=== PATIENT | female | born 1970 | race Caucasian/White ===

== ENCOUNTER 2020-11-27 20:34 | Inpatient (IN) | payer OTHER, SELFPAY ==
[2020-11-27] MEDS: Milk of Magnesia 30 ML ORAL.SUSP PO (21:29)
[2020-11-27 21:46] VITALS: BP 137/88; PULSE 80; TEMP 36.9
[2020-11-27 22:11] LABS: Appearance Urine CLEAR; Color Urine YELLOW; Glucose Urine UA NEG (NEG); Leukocyte Esterase Urine NEG (NEG); Nitrite Urine NEG (NEG); PH 6.5 (5.0-8.0); Urine Blood NEG (NEG); Urine Ketones NEG (NEG); Urine Protein NEG (NEG-TRACE)
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
[2020-11-28 06:00] VITALS: BP 119/68; PULSE 52; RESP 16; TEMP 36.4; O2SAT 98
--- NOTE | 2020-11-28 07:12 | PC.NURSE ---
Patient reports to be a smoker on Admission Assessment; refusing Nicotine Replacement Therapy. Refusing both patches and gum, stating they make her sick to her stomach.
[2020-11-28 08:08] LABS: MANUAL DIFF FLAG NO
[2020-11-28 08:11] LABS: Basophils Absolute Auto 0.1 X10*3/uL (0.0-0.2); Eosinophils Absolute Auto 0.4 X10*3/uL (0.0-0.4); Eosinophils Percent Auto 6.3 % (0-4); Hematocrit 42.4 % (37-47); Hemoglobin 13.5 g/dl (12.0-16.0); Imm Gran Abs Auto 0.01 X10*3/uL (0.00-0.03); Imm Gran Pct Auto 0.2 % (0.0-0.4); Lymphocytes Absolute Auto 2.2 X10*3/uL (1.2-4.9); Lymphocytes Percent Auto 39.2 % (20-40); Mean Corpuscular HGB Conc 31.8 g/dl (31.0-35.0); Mean Corpuscular Hemoglobin 31.1 pg (27.0-33.0); Mean Corpuscular Volume 97.7 fL (80-98); Mean Platelet Volume 9.7 fL (9.4-12.3); Monocytes Absolute Auto 0.5 X10*3/uL (0.1-1.2); Monocytes Percent Auto 8.6 % (2-11); Neutrophils Absolute Auto 2.6 X10*3/uL (2.0-8.3); Neutrophils Percent Auto 44.7 % (45-73); Platelet Count 213 X10*3/uL (160-400); Red Blood Count 4.34 X10*6/uL (4.20-5.50); Red Cell Distribution Width 14.5 % (11.0-16.0); White Blood Count 5.7 X10*3/uL (4.8-10.8)
[2020-11-28 08:31] LABS: Alanine Aminotransferase 30 U/L (0-31); Albumin Level 4.2 g/dL (3.5-5.0); Alkaline Phosphatase 81 U/L (39-117); Anion Gap 11 (12-20); Aspartate Amino Transferase 20 U/L (5-31); Bilirubin Total 0.9 mg/dL (0.0-1.0); Blood Urea Nitrogen 19 mg/dL (9-16); Carbon Dioxide 31 mmol/L (22-29); Chloride 108 mmol/L (96-108); Estimated Glomerular Filt Rate > 60; Glucose Random 93 mg/dL (60-115); Potassium 5.3 mmol/L (3.3-5.1); Sodium 145 mmol/L (135-145); Total Protein 6.6 g/dL (6.5-8.0)
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
[2020-11-28 11:05] LABS: Potassium 5.3 mmol/L (3.3-5.1)
[2020-11-28] MEDS: Magnesium Hydrox/Alum Hydrox 30 ML ORAL.SUSP PO (12:23)
--- NOTE | 2020-11-28 12:29 | PC.NURSE ---
PT RECEIVED A CALL BACK FROM [facility] COMMUNITY DIRECTOR 11/28/20
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
--- NOTE | 2020-11-28 15:40 | MHC.CLN ---
Addendum entered by Sandrita Gonzalez, REBECCA 11/28/20 15:48: HEIGHT=5'3 . WEIGHT=48.8 KG. BMI=19.1. Original Note: NUTRITION CONSULT CONSULT FOR WEIGHT LOSS AND DECREASED APPETITE. DECREASED APPETITE PARTLY ATTRIBUTED TO STRESS. REPORTS THAT USUALLY WEIGHTS ABOUT 105#. CURRENT XSHFBD=041.4# (WEIGHED SELF TODAY AT VISIT). TYPICALLY GRAZES' RATHER THAT EATING 3 FULL MEALS. DISCUSSED FOODS TO INCREASE CALORIES AND PROTEIN. DOES NOT TOLERATE LACTOSE SO DISCUSSED WAYS TO INCLUDE DAIRY IN DIET. PATIENT RECEPTIVE TO [facility].
[2020-11-28] MEDS: Milk of Magnesia 30 ML ORAL.SUSP PO (16:03)
== END 2020-11-28 20:50 | disposition home or self-care (01) | DRG 756 ==
PROVIDERS: Psychiatry & Neurology Psychiatry; Registered Nurse; Admitting Provider Psychiatry & Neurology Psychiatry; Visit Provider Psychiatry & Neurology Psychiatry
DX: F41.1 Generalized anxiety disorder (principal); F17.210 Nicotine dependence, cigarettes, uncomplicated; Z71.6 Tobacco abuse counseling
CPT/HCPCS: 36415; 80053; 81003; 84132; 85025